=== PATIENT | female | born 1995 | race Caucasian/White ===

== ENCOUNTER → 2016-10-21 | Outpatient (CLI) | payer MEDICAID ==
[~2016-10-21] MED LIST: TRAZ100T15 PO; VENL150T PO
== END | disposition home or self-care (01) ==
LOC: RAD 14:57
PROVIDERS: ATTEND Physician Assistant
DX: R10.9 Unspecified abdominal pain (principal)
CPT/HCPCS: 76700

== ENCOUNTER 2017-02-20 14:27 | Emergency (ER) | payer MEDICAID ==
[~2017-02-20] VITALS: Ht 175.3 cm; Wt 86.9 kg
[2017-02-20 15:33] LABS: BASOPHILS # (AUTO) 0.02 x10^3/uL (0-0.1); BASOPHILS % (AUTO) 0 % (0-1); EOSINOPHILS # (AUTO) 0.17 x10^3/uL (0-0.4); EOSINOPHILS % (AUTO) 2 % (1-7); LYMPHOCYTES # (AUTO) 2.18 x10^3/uL (1-3.4); LYMPHOCYTES % (AUTO) 23 % (22-44); MD NO; MEAN CORPUSCULAR HEMOGLOBIN 29.8 pg (27.0-34.8); MEAN CORPUSCULAR HGB CONC 33.2 g/dL (32.4-35.8); MEAN CORPUSCULAR VOLUME 89.7 fL (80-100); MEAN PLATELET VOLUME 7.9 fL (7.4-10.4); MONOCYTES # (AUTO) 0.83 x10^3/uL (0.2-0.8); MONOCYTES % (AUTO) 9 % (2-9); NEUTROPHILS # (AUTO) 6.23 x10^3/uL (1.8-6.8); NEUTROPHILS % (AUTO) 66 % (42-75); PLATELET COUNT 391 x10^3/uL (130-400); RED BLOOD COUNT 5.19 x10^6/uL (3.82-5.3); RED CELL DISTRIBUTION WIDTH 13.6 % (9.6-15.2)
[2017-02-20 15:47] LABS: ALANINE AMINOTRANSFERASE 56 U/L (12-78); ANION GAP 6 mmol/L (5-15); CHLORIDE 106 mmol/L (98-107); CREATININE 0.66 mg/dL (0.55-1.02)
[2017-02-20 15:48] VITALS: BP_DIAS 85
[2017-02-20 15:51] LABS: ALKALINE PHOSPHATASE 96 U/L (45-117); BILIRUBIN,TOTAL 0.2 mg/dL (0.2-1.0); TOTAL PROTEIN 8.4 g/dL (6.4-8.2)
[2017-02-20 16:43] LABS: MICROSCOPIC INDICATED
[2017-02-20] MEDS ORDERED: KETOROLAC 30 MG/1 ML ONE (16:43)
[2017-02-20] MEDS ORDERED: KETOROLAC 60 MG/2 ML IM ONE (17:00)
[2017-02-20 17:09] LABS: CULTURE INDICATED? YES
[2017-02-20 17:12] VITALS: BP_SYST 112
== END 2017-02-20 17:43 | disposition home or self-care (01) ==
LOC: ED 17:16
DX: G44.229 Chronic tension-type headache, not intractable (principal); J45.909 Unspecified asthma, uncomplicated
CPT/HCPCS: 36415; 71046; 80053; 81001; 83690; 84703; 85025; 87086; 96372; 99285; J1885

== ENCOUNTER 2018-01-14 10:49 | Emergency (ER) | payer MEDICAID ==
[~2018-01-14] VITALS: Ht 175.3 cm; Wt 88.7 kg
[~2018-01-14 10:49] MED LIST changes: +TRAZ-137 PO; -TRAZ100T15 PO
[2018-01-14 10:51] VITALS: BP 123/75
== END 2018-01-14 12:29 | disposition home or self-care (01) ==
LOC: ED 11:35
DX: R05 Cough (principal); J00 Acute nasopharyngitis [common cold]; J45.909 Unspecified asthma, uncomplicated; Z90.49 Acquired absence of other specified parts of digestive tract
CPT/HCPCS: 71046; 99283